=== PATIENT | female | born 1990 | race Caucasian/White ===

== ENCOUNTER 2017-06-13 19:27 | Emergency (ER) | payer SELFPAY ==
[~2017-06-13] VITALS: Ht 167.6 cm; Wt 86.6 kg
[2017-06-13 19:29] VITALS: Ht 167.6 cm; Wt 86.6 kg
[2017-06-13 20:42] LABS: ADD UMIC YES; UR ASCORBIC ACID NEGATIVE (NEGATIVE); UR BACTERIA FEW /HPF (NONE SEEN); UR BILIRUBIN (Dip) NEGATIVE (NEGATIVE); UR BLOOD (Dip) 2+ mg/dL (NEGATIVE); UR CLARITY CLEAR (CLEAR); UR COLOR YELLOW (YELLOW); UR GLUCOSE (Dip) NEGATIVE (NEGATIVE); UR KETONES (Dip) NEGATIVE (NEGATIVE); UR LEUKOCYTE ESTERASE (Dip) TRACE Leu/ul (NEGATIVE); UR MUCUS FEW /HPF (NONE SEEN); UR NITRITE (Dip) NEGATIVE (NEGATIVE); UR RBC 2 /HPF (0-5); UR SQUAMOUS EPITHELIAL CELL FEW /HPF (FEW); UR TOTAL PROTEIN (Dip) NEGATIVE (NEGATIVE); UR UROBILINOGEN (Dip) NEGATIVE (NEGATIVE)
[2017-06-13 20:48] LABS: BASOPHILS % 0.3 % (0.0-2.0); EOSINOPHILS # 0.2 10^3/ul (0.0-0.5); EOSINOPHILS % 1.5 % (0.0-7.0); HEMATOCRIT 33.3 % (37.0-47.0); HEMOGLOBIN 11.5 g/dl (12.0-16.0); LYMPHOCYTES # 2.2 10^3/ul (0.8-2.9); LYMPHOCYTES % 22.7 % (15.0-51.0); MEAN CORPUSCULAR HEMOGLOBIN 31.2 pg (29.0-33.0); MEAN CORPUSCULAR HGB CONC 34.5 g/dl (32.0-37.0); MEAN CORPUSCULAR VOLUME 90.2 fl (82.0-101.0); MONOCYTE # 0.9 10^3/ul (0.3-0.9); MONOCYTES % 8.7 % (0.0-11.0); NEUTROPHIL # 6.5 10^3/ul (1.6-7.5); NEUTROPHILS % 66.4 % (39.0-77.0); PLATELET COUNT 281 10^3/UL (140-415); RED BLOOD COUNT 3.69 10^6/ul (4.20-5.40); RED CELL DISTRIBUTION WIDTH 12.4 % (11.5-14.5); WHITE BLOOD COUNT 9.8 10^3/ul (4.8-10.8)
--- NOTE | 2017-06-13 21:21 | RADRPT ---
PROCEDURE: US OB. CLINICAL INDICATION: Pelvic pain. Uncertain size and dates. TECHNIQUE: Multiple sonographic images of the uterus were obtained. The images were revi ewed on a PACS workstation. COMPARISON: No prior studies are available for comparison. FINDINGS: There is a single live intrauterine gestation. heart rate is 150 beats per minute. Measurements were made in order to determine age. The results are as follows: BPD = 2.51 cm. HC = 9.52 cm. AC = 8.27 cm. FL = 1.31 cm. Estimated weight is 93 +/- 14 grams. Cervical length is 2.7 cm. [place]-rump length is 7.66 cm. Maximum vertical pocket of amniotic fluid i s 4.9 cm. The ovaries are unremarkable. Menstrual age by ultrasound dates is 14 weeks 1 day. The estimated date of delivery is 12/11/2017. Position is variable and placenta is posterior grade 0. There is no evidence for an abruption or presley centa previa. IMPRESSION: 1. Single live intrauterine gestation of 14 weeks 1 day menstrual age by ultrasound dates. 2. The estimated date of delivery is 12/11/2017. RPTAT: QQ .Armand Leigh MD, Date Time Electronically viewed and signed by .Armand Leigh MD, on 06/13/2017 21:21 .R/
[2017-06-13] MEDS ORDERED: TYL500 PO (22:33)
[2017-06-13 22:41] VITALS: BP 122/77; PULSE 77; RESP 20; TEMP 98.9
--- NOTE | 2017-06-14 00:22 | ERD ---
ER Documentation Chief Complaint Chief Complaint 15 wks , pelvic pain today HPI This is a 26-year-old female presents to the ER complaining of pelvic pain that started today. Patient states she is about 14 weeks . A1. Patient denies any vaginal bleeding. She denies any urinary frequency or dysuria. She denies any vaginal discharge, leakage. ROS 12 point review of systems was done, all negative except per HPI. Medications Home Meds Active Scripts Acetaminophen* (Tylenol*) 500 Mg Tab, 500 MG PO Q4H Y for MILD PAIN LEVEL 1-3 for 3 Days, TAB Prov:CHERELLE SHABAZZ C 06/13/17 Allergies Allergies: Coded Allergies: No Known Allergy (Unverified , 06/13/17) PMhx/Soc History of Surgery: Yes (Appy) Anesthesia Reaction: No Hx Neurological Disorder: No Hx Respiratory Disorders: No Hx Cardiac Disorders: No Hx Psychiatric Problems: Yes (Anxiety;PTSD) Hx Miscellaneous Medical Probl: No Hx Alcohol Use: No Hx Substance Use: Yes (marijuana) Hx Tobacco Use: No Smoking Status: Unknown if ever smoked Physical Exam Vitals Vital Signs Date Time Temp Pulse Resp B/P Pulse Ox O2 Delivery O2 Flow Rate FiO2 06/13/17 22:41 98.9 77 20 122/77 100 06/13/17 19:29 98.9 86 20 133/64 100 Physical Exam GENERAL: The patient is well developed and appropriate for usual state of health , in no apparent distress. HEENT: Atraumatic. CHEST: Clear to auscultation bilaterally. There are no rales, wheezes or rhonchi. HEART: Regular rate and rhythm. No murmurs, clicks, rubs or gallops. ABDOMEN: Soft, nontender and nondistended. Good bowel sounds. No rebound or guarding. No gross peritonitis. No gross organomegaly or masses. No Monk sign or McBurney point tenderness. BACK: No midline or flank tenderness. NEURO: Alert and oriented. Result Diagram: 06/13/171954 Results 24 hrs Laboratory Tests Test 06/13/17 19:55 White Blood Count 9.810^3/ul Red Blood Count 3.6910^6/ul Hemoglobin 11.5g/dl Hematocrit 33.3% Mean Corpuscular Volume 90.2fl Mean Corpuscular Hemoglobin 31.2pg Mean Corpuscular Hemoglobin Concent 34.5g/dl Red Cell Distribution Width 12.4% Platelet Count 20898^3/UL Mean Platelet Volume 10.0fl Neutrophils % 66.4% Lymphocytes % 22.7% Monocytes % 8.7% Eosinophils % 1.5% Basophils % 0.3% Nucleated Red Blood Cells % 0.0/100WBC Neutrophils # 6.510^3/ul Lymphocytes # 2.210^3/ul Monocytes # 0.910^3/ul Eosinophils # 0.210^3/ul Basophils # 0.010^3/ul Nucleated Red Blood Cells # 0.010^3/ul Urine Color YELLOW Urine Clarity CLEAR Urine pH 6.0 Urine Specific [place] 1.020 Urine Ketones NEGATIVEmg/dL Urine Nitrite NEGATIVEmg/dL Urine Bilirubin NEGATIVEmg/dL Urine Urobilinogen NEGATIVEmg/dL Urine Leukocyte Esterase TRACELeu/ul Urine Microscopic RBC 2/HPF Urine Microscopic WBC 8/HPF Urine Squamous Epithelial Cells FEW/HPF Urine Bacteria FEW/HPF Urine Mucus FEW/HPF Urine Hemoglobin 2+mg/dL Urine Glucose NEGATIVEmg/dL Urine Total Protein NEGATIVEmg/dl Beta HCG, Quantitative 43949.0mIU/ml [place] [id number] Radiology Main Line: [phone] DIAGNOSTIC IMAGING REPORT Patient: MARCIE MARTINEZ : 1990 Age: 26 Sex: F MR #: [id number] DOS: 06/13/17 0000 Ordering MD: CHERELLE SHABAZZ PA-C Location: [facility] Room/Bed: PROCEDURE: US OB. CLINICAL INDICATION: Pelvic pain. Uncertain size and dates. TECHNIQUE: Multiple sonographic images of the uterus were obtained. The images were reviewed on a PACS workstation. COMPARISON: No prior studies are available for comparison. FINDINGS: There is a single live intrauterine gestation. heart rate is 150 beats per minute. Measurements were made in order to determine age. The results are as follows: BPD = 2.51 cm. HC = 9.52 cm. AC = 8.27 cm. FL = 1.31 cm. Estimated weight is 93 +/- 14 grams. Cervical length is 2.7 cm. [place]-rump length is 7.66 cm. Maximum vertical pocket of amniotic fluid is 4.9 cm. The ovaries are unremarkable. Menstrual age by ultrasound dates is 14 weeks 1 day. The estimated date of delivery is 12/11/2017. Position is variable and placenta is posterior grade 0. There is no evidence for an abruption or placenta previa. IMPRESSION: 1. Single live intrauterine gestation of 14 weeks 1 day menstrual age by ultrasound dates. 2. The estimated date of delivery is 12/11/2017. RPTAT: QQ .Armand Leigh MD, MD Date Time Electronically viewed and signed by .Armand Leigh MD, MD on 06/13/2017 21:21 .R/ CC: CHERELLE SHABAZZ Procedures/MDM This is a 26-year-old female presents to the ER with pelvic pain, there is no evidence of placenta previa or placenta abruptio. Does not have any vaginal bleeding, suspicion for miscarriage is low. Suspicion for ectopic is low. Patient denies any evidence of urinary tract infection or pyelonephritis. Patient is to follow-up with her primary care doctor within 1-2 days or return to ER sooner if symptoms worsen. Medical decision making sure with the patient she understands and agrees with plan. Departure Diagnosis: Primary Impression: Pelvic pain Condition: Stable Patient Instructions: Pelvic Pain In : Unclear (2-3 Trimester) Additional Instructions: Call your primary care doctor TOMORROW for an appointment during the next 1-2 days.See the doctor sooner or return here if your condition worsens before your appointment time. CHERELLE SHABAZZ Jun 14, 2017 00:22
== END 2017-06-13 22:42 | disposition home or self-care (01) ==
LOC: FTE 19:27
DX: O26.892 Other specified pregnancy related conditions, second trimester (principal); R10.2 Pelvic and perineal pain; Z3A.14 14 weeks gestation of pregnancy
CPT/HCPCS: 36415; 76805; 81001; 84702; 85025; 86900; 86901